=== PATIENT | male | born 2000 | race Caucasian/White ===

== ENCOUNTER 2024-04-27 08:51 | Emergency (ER) | payer BC, OTHER ==
[~2024-04-27] VITALS: Ht 172.7 cm; Wt 86.2 kg
[2024-04-27 09:00] VITALS: BP 128/81; TEMP 98.3; O2SAT 99
[2024-04-27] MEDS ORDERED: ACETAMINOPHEN 325 MG TABLET ONE (09:51)
[2024-04-27] MEDS: ACETAMINOPHEN 325 MG TABLET PO ONE (10:02)
== END 2024-04-27 10:03 | disposition home or self-care (01) ==
LOC: ER 08:57
DX: S63.502A Unspecified sprain of left wrist, initial encounter (principal); S00.81XA Abrasion of other part of head, initial encounter; W19.XXXA Unspecified fall, initial encounter; Y93.02 Activity, running; Y92.9 Unspecified place or not applicable; Y99.9 Unspecified external cause status
CPT/HCPCS: 73110